=== PATIENT | female | born 1985 | race Two or more races ===

== ENCOUNTER 2017-09-10 18:35 | Observation (INO) | payer OTHER ==
[~2017-09-10] VITALS: Ht 154.9 cm; Wt 72.6 kg
[2017-09-10] MEDS ORDERED: ONDANSETRON HCL 4 MG/2 ML VIAL IV PRN (19:30)
[2017-09-10] MEDS ORDERED: LACTATED RINGER'S 1,000 ML IV ONE (19:45)
[2017-09-10] MEDS ORDERED: TERBUTALINE SULFATE 1 MG/ML 1ML VIAL SC ONE (19:49)
[2017-09-10 19:59] LABS: Basophils # (auto) 0 uL; Basophils % (auto) 0.1 % (0.0-2.0); Eosinophils # (auto) 0 uL; Eosinophils % (auto) 0.4 % (0.0-7.0); Hematocrit 40.3 % (36.0-46.0); Hemoglobin 13.7 g/dL (12.2-16.2); Lymphocytes # (auto) 1.8 uL; Lymphocytes % (auto) 17.7 % (10.0-50.0); Mean Corpuscular Hemoglobin 33.2 pg (28.0-32.0); Mean Corpuscular Volume 97.6 fL (80.0-100.0); Monocytes % (auto) 9.7 % (0.0-12.0); Neutrophils # (auto) 7.1 uL; Neutrophils % (auto) 72.1 % (37.0-80.0); Platelet Count (auto) 192 10^3/uL (140-450); Red Blood Cells 4.13 10^6/uL (4.0-5.20); Red Cell Distribution Width 14.2 % (11.8-14.3); White Blood Cell 9.9 10^3/uL (4.4-10.8)
[2017-09-10] MEDS ORDERED: PREN-96 PO (20:06)
[2017-09-10] MEDS ORDERED: DOCO200C4 PO (20:08)
[2017-09-10 20:16] LABS: Albumin 2.7 g/dL (3.4-5.0); BUN/Creatinine Ratio 13.8; Bilirubin, Total 0.3 mg/dL (0.2-1.0); Calcium 8.4 mg/dL (8.5-10.1); Total Protein 6.4 g/dL (6.4-8.2)
[2017-09-10 20:22] LABS: Urine Amorphous Crystal FEW /hpf (None Seen); Urine Bacteria FEW /hpf (None Seen); Urine Blood Negative /uL (Negative); Urine Specific Gravity 1.015 (1.001-1.035); Urine WBC 6 /hpf (0 - 5)
[2017-09-10 20:36] LABS: Alcohol, Urine < 3.0 mg/dL (0-5); Amphetamine Screen, Urine NEGATIVE (NEGATIVE); Barbiturate Scree,Urine NEGATIVE (NEGATIVE); Benzodiazephine Screen, Urine NEGATIVE (NEGATIVE); Cannabinoid Screen, Urine NEGATIVE (NEGATIVE); Cocaine Screen, Urine NEGATIVE (NEGATIVE); Opiate Scree,Urine NEGATIVE (NEGATIVE); Phencyclidine Screen, Urine NEGATIVE (NEGATIVE)
[2017-09-10] MEDS: TERBUTALINE SULFATE 1 MG/ML 1ML VIAL SC SCH ×2 (20:54→21:23)
[2017-09-10] MEDS ORDERED: POTASSIUM CHL 20 Meq TABLET PO ONE (21:00)
== END 2017-09-10 21:58 | disposition home or self-care (01) | DRG 918 ==
LOC: LDRP 18:35
PROVIDERS: ADMIT Specialist; ATTEND Specialist
DX: T62.8X1A Toxic effect of other specified noxious substances eaten as food, accidental (unintentional), initial encounter (principal); O26.893 Other specified pregnancy related conditions, third trimester; O21.2 Late vomiting of pregnancy; R10.13 Epigastric pain; Y92.89 Other specified places as the place of occurrence of the external cause; Z3A.31 31 weeks gestation of pregnancy
CPT/HCPCS: 36415; 59025; 76805; 80053; 80307; 81001; 81002; 85025; 96360; 96372; G0378; J3105; 96365; 96366